=== PATIENT | male | born 1980 | race Caucasian/White ===

== ENCOUNTER 2020-11-29 09:27 | Emergency (ER) | payer OTHER, SELFPAY ==
--- NOTE | ~2020-11-29 | XR_ITS ---
EXAMINATION: XR chest 2V 11/29/2020 10:09 INDICATION: Chest pain. PROCEDURE: 2 view chest COMPARISON: 04/10/2010 FINDINGS: There is left basilar atelectasis/scarring. No focal pneumonia, edema, pleural effusion or pneumothorax. The cardiomediastinal silhouette is within normal limits. There are no pleural effusio ns. There is no pneumothorax suspected. IMPRESSION: 1: Left basilar atelectasis/scarring. Reviewed, dictated and finalized at location B. NURSE
--- NOTE | 2020-11-29 09:33 | ECG_ITS ---
Measurements Intervals [place] Rate: 87 P: 24 [place]: 137 QRS: -13 QRSD: 102 T: 25 QT: 328 QTc: 395 Interpretive Statements SINUS RHYTHM BASELINE ARTIFACT- II, III, AVR, AVL, AVF, V2 NORMAL ECG Electronically Signed On 11-29-2020 10:09:31 BOTTLE BOOTH ATTENDANT by Maximiliano Garcias D.O.
[2020-11-29 09:52] LABS: Basophils Percent Auto 0.4 % (0.2-1.2); Eosinophils Absolute Auto 0.2 K/mm3 (0-0.3); Eosinophils Percent Auto 2.2 % (0-4.4); Hemoglobin 17.2 g/dL (14.0-18.0); Immature Granulocyte Absolute 0.03 K/mm3 (0.00-0.031); Immature Granulocyte Percent A 0.4 % (0-0.5); Lymphocytes Absolute Auto 1.95 K/mm3 (0.9-3.2); Lymphocytes Percent Auto 28.3 % (18.3-44.2); Mean Corpuscular HGB Conc 35.1 g/dl (32-36); Mean Corpuscular Volume 82.5 fl (80-100); Mean Platelet Volume 9.8 fl (7.4-10.4); Monocytes Absolute Auto 0.5 K/mm3 (0.1-0.6); Monocytes Percent Auto 6.5 % (2.6-8.5); Neutrophils Absolute Auto 4.3 K/mm3 (1.3-6.7); Neutrophils Percent Auto 62.2 % (45.5-73.1); Platelet Count Result 264 k/mm3 (150-375); Red Blood Count 5.94 M/mm3 (4.6-6.20); Red Cell Distribution Width 12.2 % (11.5-14.5); White Blood Count 6.9 K/mm3 (4.5-10.0)
[2020-11-29 09:55] VITALS: BP 150/93; PULSE 80; RESP 18; TEMP 36.4; O2SAT 100
--- NOTE | 2020-11-29 09:59 | ED.CHESTPAIN ---
HPI - Chest Pain General Chief Complaint: Chest Pain Stated Complaint: Right sided chest pain x 1 week Time Seen by Provider: 11/29/20 09:29 Source: patient Mode of arrival: ambulatory Limitations: no limitations History of Present Illness HPI narrative: Patient is a 40-year-old male who presents with right-sided chest pain near the axilla patient notes the pain has been present for 1 week worse with deep breathing and certain movements. Patient does not take anything for his. Patient has not been seen for these symptoms. Patient denies URI complaints. Patient notes he has had some wheezing during this.. Patient on arrival is in no distress patient does not appear uncomfortable Related Data Home Medications Medication Instructions Recorded Confirmed clonazepam 11/29/20 dexlansoprazole [Dexilant] mg 11/29/20 Allergies Allergy/AdvReac Type Severity Reaction Status Date / Time No Known Allergies Allergy Mild Unverified 05/23/12 13:00 Review of Systems Review of Systems: All systems reviewed & are unremarkable except as noted in HPI and below PMFSH Past Medical History Medical History (Updated 11/29/20 @ 13:[address] PA-C) GERD (gastroesophageal reflux disease) Social History Social History (Updated 11/29/20 @ 10:[address] PA-C) Smoking status: Never smoker Exam Narrative: Exam Narrative: GENERAL: Well-appearing, well-nourished, and in no acute distress. HEAD: Normocephalic, atraumatic. EYES: PERRLA and EOMI. ENT: Nares clear, no rhinorrhea or epistaxis. Mucous membranes moist. CHEST: Clear to auscultation. No respiratory distress. No wheezes rales or rhonchi HEART: Regular rate and rhythm. No murmur heard. Normal peripheral pulses. ABDOMEN: Soft, nontender, nondistended EXTREMITIES: Normal range of motion. No edema. SKIN: Warm, dry, no rash. NEURO: No focal deficits. Alert and oriented x3. PSYCH: Normal mood and affect. Course Course Emergency Course: Patient evaluated for chest pain in the room no distress felt appropriate for outpatient reevaluation reproducible chest pain will be discharged with outpatient reevaluation given reasons to return Vital Signs Vital signs: Vital Signs Temperature 97.6 F 11/29/20 09:55 Pulse Rate 80 11/29/20 09:55 Respiratory Rate 18 11/29/20 09:55 Blood Pressure 150/93 H 11/29/20 09:55 Pulse Oximetry 100 11/29/20 09:55 Temperature 97.6 F 11/29/20 09:55 Pulse Rate 76 11/29/20 13:21 Respiratory Rate 12 11/29/20 13:21 Blood Pressure 136/97 H 11/29/20 13:21 Pulse Oximetry 97 11/29/20 13:21 MDM - Chest Pain MDM Narrative Medical decision making narrative: ITS Impressions Chest X-Ray 11/29/20 10:10 IMPRESSION: 1: Left basilar atelectasis/scarring. Patients EKGs and labs are without significant high risk changes. Cardiac risk factors were reviewed. Patient is felt likely to be low risk for ACS and reasonable for further risk stratification testing as an outpatient. Pain was not sudden or maximal in onset without tearing or ripping. quality. No other signs or symptoms to suggest aortic dissection. A low-risk Wells criteria is noted. PE is felt to be unlikely. No pneumonia or URI symptoms were seen on evaluation today. Patient is felt to b reasonable for continued evaluation as an outpatient. Lab Data Result diagrams: 11/29/20 09:42 11/29/20 09:41 Labs: Lab Results 11/29/20 11/29/20 11/29/20 Range/Units 09:41 09:42 09:42 WBC 6.9 (4.5-10.0) K/mm3 RBC 5.94 (4.6-6.20) M/mm3 Hgb 17.2 (14.0-18.0) g/dL Hct 49.0 (42.0-52.0) % MCV 82.5 (80-100) fl MCH 29.0 (26-34) pg MCHC 35.1 (32-36) g/dl RDW 12.2 (11.5-14.5) % Plt Count 264 (150-375) k/mm3 MPV 9.8 (7.4-10.4) fl Immature Gran % (Auto) 0.4 (0-0.5) % Neut % (Auto) 62.2 (45.5-73.1) % Lymph % (Auto) 28.3 (18.3-44.2) % [place] % (Auto) 6
[2020-11-29 10:01] LABS: INR 0.8; Prothrombin Time 12.1 Seconds (11.1-14.7)
[2020-11-29 10:02] LABS: Partial Thromboplastin Time 27.2 SECONDS (22.3-36.8)
[2020-11-29 10:12] LABS: Anion Gap 3 mmol/L (8-16); Blood Urea Nitrogen 19 mg/dL (9-20); Calcium 9.2 mg/dL (8.4-10.2); Carbon Dioxide 31 mmol/L (22-30); Chloride 104 mmol/L (98-107); Estimated CRCL calculation 102 ml/min; Estimated Glomerular Filt Rate > 60; Glucose 125 mg/dL (75-110); Potassium 4.4 mmol/L (3.4-5.0); Sodium 138 mmol/L (137-145)
[2020-11-29 10:24] LABS: Troponin I < 0.012 ng/mL (0.000-0.034)
[2020-11-29] MEDS: ASPIRIN 81 MG CHEWABLE TABLET 324 MG PO (10:29)
[2020-11-29 10:47] LABS: D Dimer 0.27 ug/mL (<0.48)
[2020-11-29 11:00] VITALS: BP 126/75; PULSE 76; RESP 18; O2SAT 98
[2020-11-29] MEDS: KETOROLAC 30 MG/ML VIAL (*BKC) IV PUSH (13:12)
[2020-11-29 13:13] LABS: Troponin I < 0.012 ng/mL (0.000-0.034)
[2020-11-29] MEDS: methylPREDNISolone SOD SUCC 125 MG VIAL 80 MG IV PUSH (13:13)
[2020-11-29 13:21] VITALS: BP 136/97; PULSE 76; RESP 12; O2SAT 97
== END 2020-11-29 13:41 | disposition home or self-care (01) ==
PROVIDERS: Emergency Medicine Emergency Medical Services; Emergency Provider Emergency Medicine; PCP Family Medicine
DX: R07.9 Chest pain, unspecified (principal); K21.9 Gastro-esophageal reflux disease without esophagitis
CPT/HCPCS: 36415; 71046; 80048; 84484; 85025; 85380; 85610; 85730; 93005; 96374; 96375; 99284; A9270; J1885; J2930

== ENCOUNTER 2021-10-15 15:12 | Emergency (ER) | payer OTHER, SELFPAY ==
--- NOTE | ~2021-10-15 | XR_ITS ---
EXAMINATION: XR chest 2V DATE: 10/15/2021 15:30 INDICATION: Chest pain TECHNIQUE: PA and lateral views of the chest were obtained. COMPARISON: Chest radiograph dated 11/29/2020 FINDINGS: The lungs are clear with no focal airspace opacities, pulmonary edema, pleural effusion or pneumothor ax. The cardiomediastinal silhouette is normal. Mild thoracic kyphosis with chronic minimal to mild a nterior wedging of a few lower thoracic vertebral bodies. Moderate thoracic spondylosis. IMPRESSION: 1. No acute cardiopulmonary disease. Reviewed, dictated and finalized at location A. CAR DRIVER
--- NOTE | 2021-10-15 15:20 | ECG_ITS ---
Measurements Intervals [place] Rate: 78 P: 29 [place]: 139 QRS: -4 QRSD: 98 T: 43 QT: 364 QTc: 416 Interpretive Statements SINUS RHYTHM WITH SINUS ARRHYTHMIA BASELINE ARTIFACT- I, AVL, AVF, V2 NORMAL ECG Electronically Signed On 10-15-2021 16:00:36 OFFICE AUTOMATION TECHNICIAN by Maximiliano Garcias D.O.
[2021-10-15 15:26] VITALS: BP 148/84; PULSE 79; RESP 16; TEMP 36.7; O2SAT 97
[2021-10-15 15:36] LABS: Basophils Percent Auto 0.4 % (0.2-1.2); Eosinophils Absolute Auto 0.1 K/mm3 (0-0.3); Eosinophils Percent Auto 1.2 % (0-4.4); Hematocrit 48.1 % (42.0-52.0); Hemoglobin 16.9 g/dL (14.0-18.0); Immature Granulocyte Absolute 0.02 K/mm3 (0.00-0.031); Immature Granulocyte Percent A 0.3 % (0-0.5); Lymphocytes Percent Auto 26.4 % (18.3-44.2); Mean Corpuscular HGB Conc 35.1 g/dl (32-36); Mean Corpuscular Hemoglobin 28.8 pg (26-34); Mean Corpuscular Volume 81.9 fl (80-100); Mean Platelet Volume 9.9 fl (7.4-10.4); Monocytes Absolute Auto 0.5 K/mm3 (0.1-0.6); Monocytes Percent Auto 6.2 % (2.6-8.5); Neutrophils Absolute Auto 4.7 K/mm3 (1.3-6.7); Neutrophils Percent Auto 65.5 % (45.5-73.1); Platelet Count Result 263 k/mm3 (150-375); Red Blood Count 5.87 M/mm3 (4.6-6.20); Red Cell Distribution Width 11.9 % (11.5-14.5); White Blood Count 7.2 K/mm3 (4.5-10.0)
[2021-10-15 15:47] LABS: Prothrombin Time 13.1 Seconds (11.1-14.7)
[2021-10-15 15:48] LABS: Partial Thromboplastin Time 28.2 SECONDS (22.3-36.8)
[2021-10-15 16:03] LABS: Troponin I 0.016 ng/mL (0.000-0.034)
[2021-10-15 18:27] LABS: Alanine Aminotransferase 54 U/L (4-50); Albumin Level 4.5 g/dL (3.5-5.1); Alkaline Phosphatase 59 U/L (38-126); Anion Gap 12 mmol/L (8-16); Aspartate Amino Transferase 41 U/L (17-59); Bilirubin,Total 0.8 mg/dL (0.2-1.3); Blood Urea Nitrogen 15 mg/dL (9-20); Calcium 9.1 mg/dL (8.4-10.2); Carbon Dioxide 21 mmol/L (22-30); Chloride 106 mmol/L (98-107); Estimated CRCL calculation 90 ml/min; Estimated Glomerular Filt Rate > 60; Glucose 110 mg/dL (65-110); Lipase 99 U/L (23-300); Potassium 3.9 mmol/L (3.4-5.0); Sodium 139 mmol/L (137-145)
== END 2021-10-16 03:12 | disposition left against medical advice (07) ==
LOC: ANHED 17:29
PROVIDERS: Emergency Provider Emergency Medicine; PCP Family Medicine
DX: R07.9 Chest pain, unspecified (principal); Z53.21 Procedure and treatment not carried out due to patient leaving prior to being seen by health care provider
CPT/HCPCS: 36415; 71046; 80053; 83690; 84484; 85025; 85610; 85730; 93005; 99199

== ENCOUNTER 2022-04-17 08:37 | Emergency (ER) | payer OTHER, SELFPAY ==
--- NOTE | ~2022-04-17 | CT_ITS ---
EXAMINATION: CT brain wo con DATE: 04/17/2022 09:28 INDICATION: Headache, dizziness. TECHNIQUE: Computed tomography (CT) of the head was performed without intravenous contrast. The mA wa s adjusted according to patient size. Iterative reconstruction technique was employed. Exam dose: 60 5.33 mGy-cm total exam DLP. COMPARISON: None FINDINGS: No intracranial mass lesion or hemorrhage or cerebrovascular accident. No midline shift or mass effect effect. Normal ventricular size. Normal zavaleta-white matter differentiation. No subdural or epidural hematoma. Orbital contents are unremarkable. There is an opacified left ethmoid air cell. The paranasal sinuses and mastoid air cells are otherwis e unremarkable. No fracture or bone destruction of the cranial vault. IMPRESSION: No intracranial abnormality Reviewed, dictated and finalized at Location A. Reviewed, dictated and finalized at location B. IMPRESSION: No intracranial abnormality
[2022-04-17 08:42] VITALS: BP 149/92; PULSE 89; RESP 16; TEMP 36.5; O2SAT 98
--- NOTE | 2022-04-17 09:03 | ECG_ITS ---
Measurements Intervals [place] Rate: 89 P: 8 IL: 136 QRS: -17 QRSD: 98 T: 17 QT: 348 QTc: 426 Interpretive Statements SINUS RHYTHM MINIMAL VOLTAGE CRITERIA FOR LVH, CONSIDER NORMAL VARIANT [MEETS CRITERIA IN ONE OF: R(aVL), S(V1), R(V5), R(V5/V6)+S(V1)] CANNOT RULE OUT INFERIOR MYOCARDIAL INFARCTION COMPARED TO ECG 10/15/2021 15:18:30 Q-WAVE IN LEAD 3 IS NEW Electronically Signed On 04-17-2022 18:00:46 CDT by Carmen Edmonds M.D.
--- NOTE | 2022-04-17 09:04 | ED.DIZZY ---
HPI - Dizziness General Chief Complaint: Dizziness Stated Complaint: off the wall dizzy spells Time Seen by Provider: 04/17/22 08:50 History of Present Illness HPI Narrative: 5-year-old male presents the emergency room with a sudden onset of dizziness. Patient denies any injury or trauma. Patient states the dizziness is worse with positional movements and is accompanied with nausea. Patient states he recently was given prescription for azithromycin for postauricular ear pain, believing that he was having an ear infection. Patient denies any sinus congestion, postnasal drip, rhinorrhea, sneezing, or cough. Related Data Home Medications Medication Instructions Recorded Confirmed clonazepam 1 mg tablet 11/29/20 dexlansoprazole 60 mg mg 11/29/20 capsule,biphase delayed release (Dexilant) Allergies Allergy/AdvReac Type Severity Reaction Status Date / Time No Known Allergies Allergy Mild Verified 04/17/22 08:38 Review of Systems Review of Systems: CONSTITUTIONAL: Denies fever, chills, or sweats. EYES: Denies visual changes, redness, or discharge. ENT: Denies rhinorrhea, congestion, sore throat, or otalgia. CARDIOVASCULAR: Denies chest pain, palpitations, or edema. RESPIRATORY: Denies cough or dyspnea. GASTROINTESTINAL: Denies abdominal pain, nausea, vomiting, or diarrhea. GENITOURINARY: Denies dysuria or hematuria. SKIN: Denies rash or itching. MUSCULOSKELETAL: Denies back pain, joint pain, or myalgia. NEUROLOGIC: Reports dizziness PSYCHIATRIC: Denies anxiety or depression. [facility] Past Medical History Medical History GERD (gastroesophageal reflux disease) Social History Social History Smoking status: Never smoker Exam Narrative: GENERAL: Well-appearing, well-nourished, no physical limitations, and in no acute distress. HEAD: Normocephalic, atraumatic. EYES: Conjunctivae normal, PERRLA and EOMI. ENT: External ears normal, TMs with clear effusion bilaterally, right ear canal is erythematous CHEST: Clear to auscultation. No respiratory distress. No wheezes rales or rhonchi. No tenderness. HEART: Regular rate and rhythm. No murmur heard. Normal peripheral pulses EXTREMITIES: Normal range of motion. No edema. No clubbing or cyanosis SKIN: Warm, dry, no rash. No noted wounds NEURO: No focal deficits. Alert and oriented x3. MAEW. CN's II-XI intact bilaterally, normal gait PSYCH: Cooperative. Normal mood and affect. Course Vital Signs Vital signs: Vital Signs Temperature 36.5 C 04/17/22 08:42 Pulse Rate 89 04/17/22 08:42 Respiratory Rate 16 04/17/22 08:42 Blood Pressure 149/92 H 04/17/22 08:42 Pulse Oximetry 98 04/17/22 08:42 Oxygen Delivery Room Air 04/17/22 08:42 Temperature 36.5 C 04/17/22 08:42 Pulse Rate 89 04/17/22 08:42 Respiratory Rate 16 04/17/22 08:42 Blood Pressure 149/92 H 04/17/22 08:42 Pulse Oximetry 98 04/17/22 08:42 Oxygen Delivery Room Air 04/17/22 08:42 MDM - Dizziness MDM Narrative Medical decision making narrative: Patient presents with dizziness, most consistent with a peripheral cause likely of positional vertigo. History is not consistent with M?ni?re's disease, there is no history of trauma. No red flag features for central vertigo which including gradual onset nystagmus or any other focal neurological findings on exam. Presentations not consistent with an acute MACHINE ADJUSTER LEADER infection or tumor basilar artery insufficiency. Patient will be sent home on meclizine and Zofran and told to follow-up with primary care Imaging Data Radiologist's impression: Impressions Head CT 04/17/22 09:34 IMPRESSION: No intracranial abnormality Discharge Plan Discharge Clinical Impression: Benign paroxysmal positional vertigo Patient Disposition: Home, Self-Care Condition: Stable Instructions: Antibiotic Fo
[2022-04-17] MEDS: ONDANSETRON INJ 4 MG/2 ML VIAL IV PUSH (09:12)
[2022-04-17] MEDS: MECLIZINE HCL 25 MG TABLET PO (09:12)
[2022-04-17 09:32] LABS: Basophils Percent Auto 0.5 % (0.2-1.2); Eosinophils Absolute Auto 0.1 K/mm3 (0-0.3); Eosinophils Percent Auto 1.3 % (0-4.4); Hematocrit 45.9 % (42.0-52.0); Hemoglobin 16.3 g/dL (14.0-18.0); Immature Granulocyte Absolute 0.02 K/mm3 (0.00-0.031); Immature Granulocyte Percent A 0.3 % (0-0.5); Lymphocytes Absolute Auto 1.61 K/mm3 (0.9-3.2); Mean Corpuscular HGB Conc 35.5 g/dl (32-36); Mean Corpuscular Hemoglobin 28.5 pg (26-34); Mean Corpuscular Volume 80.2 fl (80-100); Mean Platelet Volume 10.1 fl (7.4-10.4); Monocytes Absolute Auto 0.5 K/mm3 (0.1-0.6); Monocytes Percent Auto 8.2 % (2.6-8.5); Neutrophils Absolute Auto 3.7 K/mm3 (1.3-6.7); Neutrophils Percent Auto 62.7 % (45.5-73.1); Platelet Count Result 248 k/mm3 (150-375); Red Blood Count 5.72 M/mm3 (4.6-6.20); Red Cell Distribution Width 11.9 % (11.5-14.5)
[2022-04-17 09:43] LABS: Alanine Aminotransferase 75 U/L (6-50); Albumin Level 4.4 g/dL (3.5-5.1); Alkaline Phosphatase 65 U/L (38-126); Anion Gap 5 mmol/L (8-16); Aspartate Amino Transferase 46 U/L (17-59); Bilirubin,Total 0.8 mg/dL (0.2-1.3); Blood Urea Nitrogen 15 mg/dL (9-20); Calcium 8.6 mg/dL (8.4-10.2); Carbon Dioxide 25 mmol/L (22-30); Chloride 107 mmol/L (98-107); Estimated CRCL calculation 91 ml/min; Estimated Glomerular Filt Rate > 60; Glucose 107 mg/dL (65-110); Sodium 137 mmol/L (137-145)
[2022-04-17 09:50] VITALS: BP 138/72; PULSE 81; RESP 14; O2SAT 100
[2022-04-17 10:00] LABS: Troponin I < 0.012 ng/mL (0.000-0.034)
[2022-04-17 11:02] VITALS: BP 132/76; PULSE 72; RESP 14; O2SAT 100
== END 2022-04-17 11:02 | disposition home or self-care (01) ==
PROVIDERS: Emergency Provider Nurse Practitioner Family; PCP Family Medicine
DX: H81.10 Benign paroxysmal vertigo, unspecified ear (principal); K21.9 Gastro-esophageal reflux disease without esophagitis; R94.31 Abnormal electrocardiogram [ECG] [EKG]
CPT/HCPCS: 36415; 70450; 80053; 84484; 85025; 93005; 96374; 99284; A9270; J2405

== ENCOUNTER 2022-08-05 09:12 | Outpatient (CLI) | payer OTHER, SELFPAY ==
--- NOTE | 2022-08-05 11:30 | NEURO_ITS ---
Impression: # Complains of nocturnal paresthesia and pain shooting up the arm. # Bilateral moderate Carpal Tunnel Syndrome. # No ulnar neuropathy. # Normal needle/EMG exam. Nerve Conduction Studies Anti Sensory Summary Table Stim Site NR Peak (ms) P-T Amp (?V) Site1 Site2 Delta-P (ms) Dist (cm) Arturo (m/s) Left Median Anti Sensory (2-3nd Digit) Wrist 4.4 38.1 Wrist 2-3nd Digit 4.4 14.0 32 Wrist 4.6 13.3 Wrist 2-3nd Digit 4.4 14.0 32 Right Median Anti Sensory (2-3nd Digit) Wrist 4.4 21.6 Wrist 2-3nd Digit 4.4 14.0 32 Wrist 4.8 30.5 Wrist 2-3nd Digit 4.4 14.0 32 Left Radial Anti Sensory (Base 1st Digit) Wrist 2.1 37.9 Wrist Base 1st Digit 2.1 0.0 Right Radial Anti Sensory (Base 1st Digit) Wrist 2.2 22.4 Wrist Base 1st Digit 2.2 0.0 Left Ulnar Anti Sensory (5th Digit) Wrist 2.6 69.6 Wrist 5th Digit 2.6 14.0 54 Right Ulnar Anti Sensory (5th Digit) Wrist 2.4 51.6 Wrist 5th Digit 2.4 14.0 58 Motor Summary Table Stim Site NR Onset (ms) O-P Amp (mV) Site1 Site2 Delta-0 (ms) Dist (cm) Arturo (m/s) Left Median Motor (Abd Poll Brev) Wrist 5.0 3.0 Elbow Wrist 4.9 29.0 59 Elbow 9.9 3.0 Right Median Motor (Abd Poll Brev) Wrist 4.8 1.1 Elbow Wrist 5.0 29.0 58 Elbow 9.8 1.0 Left Ulnar Motor (Abd Dig Minimi) Wrist 2.4 8.4 A Elbow Wrist 5.6 33.0 59 A Elbow 8.0 7.7 Right Ulnar Motor (Abd Dig Minimi) Wrist 2.6 8.9 A Elbow Wrist 5.4 31.0 57 A Elbow 8.0 8.4 F Wave Studies NR F-Lat (ms) L-R F-Lat (ms) Left Median (Mrkrs) (Abd Poll Brev) 29.77 0.88 Right Median (Mrkrs) (Abd Poll Brev) 28.89 0.88 Left Ulnar (Mrkrs) (Abd Dig Min) 28.90 0.31 Right Ulnar (Mrkrs) (Abd Dig Min) 28.59 0.31 EMG Side Muscle Nerve Root Ins Act Fibs Amp Dur Recrt Comment Right 1stDorInt Ulnar C8-T1 Nml Nml Nml Nml Nml Right Ext Indicis Radial (Post Int) C7-8 Nml Nml Nml Nml Nml Right Ext Digitorum Radial (Post Int) C7-8 Nml Nml Nml Nml Nml Right BrachioRad Radial C5-6 Nml Nml Nml Nml Nml Right PronatorTeres Median C6-7 Nml Nml Nml Nml Nml Right Abd Poll Brev Median C8-T1 Nml Nml Nml Nml Nml Left 1stDorInt Ulnar C8-T1 Nml Nml Nml Nml Nml Left Ext Indicis Radial (Post Int) C7-8 Nml Nml Nml Nml Nml Left Ext Digitorum Radial (Post Int) C7-8 Nml Nml Nml Nml Nml Left BrachioRad Radial C5-6 Nml Nml Nml Nml Nml Left PronatorTeres Median C6-7 Nml Nml Nml Nml Nml Left Abd Poll Brev Median C8-T1 Nml Nml Nml Nml Nml Right ABD Dig Min Ulnar C8-T1 Nml Nml Nml Nml Nml Right Biceps Musculocut C5-6 Nml Nml Nml Nml Nml Right Triceps Radial C6-7-8 Nml Nml Nml Nml Nml Right Deltoid Axillary C5-6 Nml Nml Nml Nml Nml Left ABD Dig Min Ulnar C8-T1 Nml Nml Nml Nml Nml Left Biceps Musculocut C5-6 Nml Nml Nml Nml Nml Left Triceps Radial C6-7-8 Nml Nml Nml Nml Nml Left Deltoid Axillary C5-6 Nml Nml Nml Nml Nml MTDD
== END 2022-08-05 09:13 | disposition home or self-care (01) ==
LOC: ANHCARD 09:16
PROVIDERS: PCP Family Medicine; Visit Provider Family Medicine
DX: R20.2 Paresthesia of skin (principal); G56.03 Carpal tunnel syndrome, bilateral upper limbs
CPT/HCPCS: 95886; 95911

== ENCOUNTER 2022-08-26 16:30 | Outpatient (CLI) | payer OTHER, SELFPAY ==
--- NOTE | ~2022-08-26 | MR_ITS ---
EXAMINATION: MR cervical spine wo con DATE: 08/26/2022 17:30 INDICATION: Neck pain. TECHNIQUE: Magnetic resonance imaging (MRI) of the cervical spine was performed without intravenous c ontrast. Sequences included sagittal T2-weighted FSE, sagittal T2-weighted FS FSE, sagittal T1-weight ed FSE, axial MERGE, and axial T2-weighted FSE. COMPARISON: None FINDINGS: Bone alignment is normal. Vertebral body heights and intervertebral disc heights are normal . The spinal cord signal intensity is normal. The following disc levels are specifically discussed: C2-C3: The disc does not extend beyond the endplate margin. There is no uncovertebral joint osteoarth ritis. There is mild bilateral facet joint osteoarthritis. There is no neural foraminal stenosis. The re is no central canal stenosis. C3-C4: There is a central protrusion. There is mild right and moderate left uncovertebral joint osteo arthritis. There is mild left facet joint osteoarthritis. There is mild left neural foraminal stenosi s. There is mild central canal stenosis. C4-C5: The disc is bulging. There is mild bilateral uncovertebral joint osteoarthritis. There is no f acet joint osteoarthritis. There is mild left neural foraminal stenosis. There is mild central canal stenosis. C5-C6: The disc does not extend beyond the endplate margin. There is mild bilateral uncovertebral laura nt osteoarthritis. There is moderate bilateral facet joint osteoarthritis. There is mild left neural foraminal stenosis. There is no central canal stenosis. C6-C7: The disc does not extend beyond the endplate margin. There is mild bilateral uncovertebral laura nt osteoarthritis. There is mild bilateral facet joint osteoarthritis. There is no neural foraminal s tenosis. There is no central canal stenosis. C7-T1: The disc does not extend beyond the endplate margin. There is no uncovertebral joint osteoarth ritis. There is mild bilateral facet joint osteoarthritis. There is no neural foraminal stenosis. The re is no central canal stenosis. IMPRESSION: 1. Mild cervical spondylosis. Reviewed, dictated and finalized at location A. ENTARY TUTOR
== END 2022-08-26 16:31 | disposition home or self-care (01) ==
PROVIDERS: PCP Family Medicine; Visit Provider Physician Assistant
DX: M54.2 Cervicalgia (principal); M43.02 Spondylolysis, cervical region
CPT/HCPCS: 72141

== ENCOUNTER 2024-11-02 15:58 | Outpatient (CLI) | payer OTHER, SELFPAY ==
--- NOTE | ~2024-11-02 | CT_ITS ---
EXAMINATION: CT abdomen w con DATE: 11/02/2024 16:20 INDICATION: Anemia TECHNIQUE: Computed tomography (CT) of the abdomen was performed with 100 mL Omnipaque-350 intravenou s contrast. Automated exposure control and iterative reconstruction technique were employed. The dose -length product was 638.93 mGy-cm. COMPARISON: CT dated 05/02/2019 FINDINGS: No interval change in likely benign 3 mm pleural-based left lower lobe nodule. Heart size is normal. No pericardial or pleural effusion. Increase in size of a now moderate sized sliding-type hiatal orlin ia. Liver, gallbladder, spleen, pancreas, bilateral adrenal glands and kidneys are normal. Visualized portions of bowels are unremarkable. No pathologically enlarged abdominal lymphadenopathy. Mild lowe r thoracic kyphosis with severe spondylosis and chronic mild anterior wedging of multiple lower thora cic vertebral bodies. IMPRESSION: 1. Interval increase in size of a now moderate-sized sliding-type hiatal hernia. Reviewed, dictated and finalized at location B. ICK BOAT LEVER OPERATOR IMPRESSION: 1. Interval increase in size of a now moderate-sized sliding-type hiatal hernia .
== END 2024-11-02 15:59 | disposition home or self-care (01) ==
PROVIDERS: PCP Family Medicine; Visit Provider Nurse Practitioner Family
DX: K44.9 Diaphragmatic hernia without obstruction or gangrene (principal)
CPT/HCPCS: 74160; Q9967

== ENCOUNTER 2025-01-10 00:14 | Day surgery (SDC) | payer OTHER, SELFPAY ==
[2024-12-30 12:39] VITALS: BMI 32.0
--- OUTSIDE RECORDS SUMMARY | 2025-01-10 00:18 | XMS_ITS | Clinical Summary ---
Author Organization [facility] Address [address] [place] [address] Care Team Providers Care Rn Clinical Documentation Specialist Name Role Phone Unavailable Primary Care Provider Unavailabl e Immunizations Immunization Administration Dates Next Due Covid-19, Mrna, Lnp-s, Pf, 30 Mcg/0.3 Ml Dose (P fizer) 11/07/2021 Social History Tobacco Use Types Packs/Day Years Used Date Smoking Tobacco: Never Assessed Sex and Gender Information Value Date Recorded Sex Assigned at Not on file Legal Sex Male 8:25 AM CDT Gender Identity Not on file Sexual Orientation Not on file Plan of Treatment Health Maintenance Due Date Last Done Comments Hepatitis C Virus (HCV) Screening 1980 TdaP Immunization 1980 Hepatitis B Immunization (1 of 3 - 19+ 3-dose series) 2000 Influenza Immunization (#1) 06/19/202402/2020, 08/28/2019, 07/05/2018 SARS-COV-2 Immunization ( season) 2024 11/07/2021, 01/05/2021, 12/15/2020 Respiratory Syncytial Virus (RSV) Immunization (Adult) (1 - 1-dose 75+ series) 2056 Meningococcal Immunization (ACWY) Aged Out No longer eligible b ased on patient's age to complete this topic Pneumococcal Immunization Combined Aged Out No longer eligible b ased on patient's age to complete this topic Rotavirus Immunization Aged Out No lo nger eligible based on patient's age to complete this topic
--- OUTSIDE RECORDS SUMMARY | 2025-01-10 00:18 | XMS_ITS ---
Author Organization [facility] [employer] Address [address] [address] Care Team Providers Care Case Making Machine Operator Name Role Phone Salvador Kristina Unavailable [phone] Social History Sex Assigned At : Social History Observation Description Sex Assigned At Male Encounters Encounter Location Date Provider Diagnosis [facility] [employer] [address] [address] 08/01/2024 Kristina Franco Plan Of Treatment No Information Progress Notes * VANESA PENA DDOB:1980 (44 yo M)Acc No.[id number]:08/01/2024 Patient: Monica JONESVANESA Provider: JACK CHARLTON :1980 A ge:44 Y S ex:Male Date:08/01/2024 Address:[address] [place] [address] [facility] Subjective: * Chief Complaints: * * Medical History: Objective: * Vitals: Assessment: Plan: * Treatment: * Procedure Codes: N S NO SHOW * Billing Information: * Visit Code: * Procedure Codes: NS NO SHOW. * Sign off status: Completed true * Provider: JACK CHARLTON Date: Generated for Printi ng/Faweslyg/eTransmitting on: 0 01/10/2025 12:18 AM CDT
--- OUTSIDE RECORDS SUMMARY | 2025-01-10 00:18 | XMS_ITS ---
Author Organization [facility] [employer] Address [facility] [address] [address] Care Team Providers Care Mill Roll Operator Name Role Phone Migration, Provider Unavailable Unavailable Allergies Allergen (clinical drug ingredient) Drug/Non Drug Allergy documented on EMR Reaction Allergy Type Onset Date Status amoxicillin Amoxicillin Unknown Drug Allergy 06/12/2023 Ac tive REASON FOR VISIT EMR-Keagan Medications Medication SIG (Take, Route, Frequency, Duration) Notes Start Date End Date Status Clotrimazole-Betametha sone 1-0.05 % External 10/14/2023 Active Sertraline HCl 25 MG Oral 10/14/2023 Active Sertraline HCl 50 MG Oral 10/14/2023 Active valACYclovir HCl 1 GM Oral 10/14/2023 Active Omeprazole *Pick strength-form from [employer] for eRX* 10/14/2023 Active clonazePAM 1 MG Oral 10/14/2023 Act rosalina Social History Sex Assigned At : Social History Observation Description Sex Assigned At Male Encounters Encounter Location Date Provider Diagnosis [facility] [address] [address] 03/06/2024 Provider Migration Plan Of Treatment No Information Progress Notes * VANESA PENA DDOB:1980 (43 yo M)Acc No.[id number]:03/06/2024 Patient: Monica VANESA JONES :1980 A ge:43 Y S ex:Male Address:[address] [place], [place] [address], [address] Subjective: * Chief Complaints: * E MR-Keagan * Medical History: * Surgical History: * Hospitalization/Major Diagno stic Procedure: * Family History: F ather: No current problems or disability . M other: No current problems or disability .? * Social History: M igrated Social History: M igrated Social History: Alcohol Intake: None 06/12/2023,Tobacco Years: Former smoker 08/12/2022. * Medications: T akingClotrimazole-Betamethasone 1-0.05 % Cream External clonazePAM 1 MG Tablet Oral Sertraline HCl 25 MG Tablet Oral Omeprazole , Notes to Pharmacist: *Pick strength-form from [facility] for eRX*Sertraline HCl 50 MG Tablet Oral valACYclovir HCl 1 GM Tablet Oral Taking Clotrimazole-Betamethasone 1-0.05 % Cream External Taking clonazePAM 1 MG Tablet Oral Taking Sertraline HCl 25 MG Tablet Oral Taking Omeprazole , Notes to Pharmacist: *[facility]*Taking Sertraline HCl 50 MG Tablet Oral Taking valACYclovir HCl 1 GM Tablet Oral * Allergies: A moxicillin: Allergy - Onset Date 06/12/2023 Objective: * Vitals: * Physical Examination: Assessment: Plan: * Treatment: PDMP report request complete d on 04/21/2024 09:20:52 PM - Kristina Franco * Procedure Codes: * true * Date: Generated for Yariel cast/Arcadio/Le on: 0 01/10/2025 12:18 AM CDT
--- OUTSIDE RECORDS SUMMARY | 2025-01-10 00:18 | XMS_ITS | Continuity of Care Document ---
Author Organization [facility] Address [address] [place] [address] Phone Care Team Providers Care Turkey Farmer Name Role Phone Kareem Espino MD Unavailable Unavailable Procedures Procedure Date MRI, UPPER EXTREMITY W/O CONTRAST Advance Directives Directive Yes / No Effective Date File Name No Information Encounters Encounter Description Practice Location Reason(s) For Visit Diagnoses Date Provider Providers Copied on Encounter [facility], [address], [place], [place], [id number], [place] tel:[phone] [facility] No Information Srinivas Serna. [address], [place], [id number], [place]. tel:[phone] Referring Provider: Josué Chaparro, [address] [place] [address] [place], [address]. tel:[phone] Family History Family Member Type Diagnosis Age At Onset No Information Payers Payer name Insurance type Covered republican ID Authoriza tion(s) [employer] CI [id number] NAPP Social History Type Description Quantity Date Captured Comments Sex Male Smoking Status No Information Chief Complaint And Reason For Visit No Information Reason For Referral Reason For Referral No Information History Of Present Illness Encounter Date Complaint History Of Prese nt Illness No Information Functional Status Date Functional Assessmen t No Information Instructions Date Instruction Additional Infor mation No Information Assessments Type Assessment Date No Information Patient Care Teams Name Effective Dates (start - stop) Status Members No Information
--- OUTSIDE RECORDS SUMMARY | 2025-01-10 00:19 | XMS_ITS | Clinical Summary ---
Author Organization [facility] Address [address] [place] [address] Care Team Providers Care Ultrasound Technician Name Role Phone Samantha Guillen MD Primary Care Provider [phone] Source Comments [facility],non-owned Affiliates and Associated Physician Practices is amultiple site organization consisting of ambulatory clinics and hospital sitesin [place], [place], [place] and [place]. This disclosure is being madepursuant to the Care Everywhere program and may not contain all information available regarding this patient. Last updated 18.[facility] Allergies No known active allergies Medications * Be aware that medications may not be up to date on this document. Alwaysverify current medications with the patient. Medication Sig Dispensed Refills Start Date End Date Status CLONAZEPAM PO Active Dexlansoprazole (DEXILANT PO) Active Active Problems No known active problems Social History Tobacco Use Types Packs/Day Years Used Date Smoking Tobacco: Never Smokeless Tobacco: Never Sex and Gender Information Value Date Recorded Sex Assigned at Not on file Gender Identity Not on file Sexual Orientation Not on file Last Filed Vital Signs Vital Sign Reading Time Taken Comments Blood Pressure 118/72 08/27/2017 12:30 PM RECORDING STUDIO INTERN Pulse 83 08/27/2017 12:30 PM RECORDING STUDIO INTERN Temperature 36.8 C (98.3 F) 08/27/2017 12:30 PM RECORDING STUDIO INTERN Respiratory Rate 16 08/27/2017 12:30 PM RECORDING STUDIO INTERN Oxygen Saturation 98% 08/27/2017 12:30 PM RECORDING STUDIO INTERN Inhaled Oxygen Concentration - - Weight 92.5 kg (204 lb) 08/27/2017 12:30 PM RECORDING STUDIO INTERN Height 172.7 cm (5' 8 ) 08/27/2017 12:30 PM RECORDING STUDIO INTERN Body Mass Index 31.02 08/27/2017 12:30 PM RECORDING STUDIO INTERN Plan of Treatment Health Maintenance Due Date Last Done Comments LIPID TESTING 1981 HIV SCREENING 1996 HEPATITIS C SCREENING 07/11/1999 DTAP/TDAP/TD VACCINES (1 - Tdap) 2000 HEPATITIS B VACCINE (1 of 3 - 19+ 3-dose series) 2000 COVID-19 VACCINE (1 - 2023-2 5 season) 2024 INFLUENZA VACCINE (#1) 2024 DEPRESSION SCREENING 10/19/2024 ZOSTER VACCINE (1 of 2) 2031 HIB VACCINE Aged Out No longer eligi ble based on patient's age to complete this topic HPV VACCINE Aged Out No longer eligi ble based on patient's age to complete this topic MENINGOCOCCAL (Group B) VACC INE SHARED DECISION-MAKING Aged Out No longer eligibl e based on patient's age to complete this topic MENINGOCOCCAL GROUPS A/C/Y/W VACCINE Aged Out No longer eligible b ased on patient's age to complete this topic PNEUMOCOCCAL VACCINE Aged Out No long er eligible based on patient's age to complete this topic Care Teams Ultrasound Technician Relationship Specialty Start Date End Date Samantha Guillen MD [address] [place] [id number] PCP - General Family Medicine 08/27/17
--- OUTSIDE RECORDS SUMMARY | 2025-01-10 00:19 | XMS_ITS | Data Portability ---
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 Patient has clinical and nerve conduction velocity test evidence of bilateral carpal tunnel syndrome. I have discussed the option of carpal tunnel release with him. 2. Patient appears to have radiculopathy right C6 distribution. He has mild weakness in supination which is C6 and he has constant numbness in the dorsum of his right hand 1st webspace which would be in the C6 distribution. One option would be to proceed with carpal tunnel release surgery and see with symptoms are left. With his chronic significant right-sided neck pain and sensory and motor findings strongly suggesting a C6 cervical radiculopathy, I think it would be prudent to obtain MRI scan of the cervical spine 1st. If he had significant cervical stenosis for example it would be appropriate to have him see a cervical medical charge entry specialist as the next step. If he does not have an urgent surgical lesion in the cervical spine then I would recommend proceeding with carpal tunnel release as discussed. I have given him the care the neck instruction booklet that shows exercises he can work on. He does rounding of the shoulders which are somewhat protracted and as result he has a neck forward type of posterior and I explained him that trying to stand up straight so that is neck is in line with his back will tend to open up the foramina may reduce radicular symptoms. I have prescribed a Medrol Dosepak to see if this will help. I would recommend he wear the splints at night for the time being. I will see him back after the test. 45 minutes were spent total care this patient more than half the time spent in [id number] care. [email or web address] Not available 09/15/2023 19:40:44 09/21/2024 09/21/2024 Assessment: Elevated BP Severe OSAHS, AHI = 30 PLMD Hypoventilation Plan: The following were reviewed and explained to the patient: [facility] home sleep study 12/31/20 AHI = 18 [facility] home sleep study 09/13/24 AHI = 30, supine AHI = 33 General information on sleep disordered breathing, evaluation of sleep disordered breathing, treatment with PAP therapy, and living with PAP therapy were covered. PSG is medically necessary to determine the management of sleep apnea. We discussed with the patient the impact of weight on: Sleep disordered breathing Mixed hyperlipidemia SANDY Hepatic steatosis Right inguinal hernia We discussed with the patient the benefit of PAP therapy on: Sleep disordered breathing Anxiety SANDY Educated the patient on sleep hygiene measures. Relaxing rituals to rest easy, understanding foods with positive and negative impact on sleep, creating a peaceful sleep environment, timing of exercise, using herbal sleep aids, and practicing sleep-friendly meditation were covered. To determine how much sleep is needed, the patient will assess where he falls on the spectrum, examine what lifestyle factors such as work schedules and stress are affecting the quality and quantity of sleep. In general, adults need 7-9 hours of sleep. Educated the patient regarding foods that promote sleep. These include but are not limited to cherries, bananas, toast, oatmeal, and warm milk. Educated the patient regarding foods and drinks to avoid before bedtime. These include but are not limited to aged cheese, chocolate, spicy foods, tomato-based sauces, soy, ginseng tea and processed meat. Advocated influenza vaccination annually and pneumonia vaccination CLAIR. Advocated weight loss through diet and exercise. Patient's ideal body weight according to height and gender is up to 160 lbs. Encouraged patient to adjust caloric intake to maintain/achieve ideal body weight, emphasizing on fruits, vegetables, whole grains, and fat-free or low-fat products. These include lean meats, poultry, fish, beans, eggs, and nuts and foods that are low in saturated fats, trans-fats, cholesterol, salt (sodium), and glycemic index. Stressed the importance of regular exercise up to the patient's capacity limits. In this case, we recommend 20 min daily walking, 2 days a week of resistance training. Patient to monitor BP daily and bring records to PCP for further management. Follow-up: 1 week after titration sleep study Not available 09/21/2024 17:29:03 11/15/2024 11/15/2024 Assessment: Elevated BP Severe OSAHS, AHI = 30 Treatment-emergent central apneas Plan: The following were reviewed and explained to the patient: [facility] home sleep study 12/31/20 AHI = 18 [facility] home sleep study 09/13/24 AHI = 30, supine AHI = 33 [facility] titration sleep study 11/04/24 sleep onset = 28.5 minutes, REM onset = 327 minutes, ResMed medium AirFit F30 full face mask @ 12 cmH2O, PLMI = 0.0 Educated the patient on problems and solutions associated with positive airway pressure (PAP) use. Difficulty tolerating pressure, mask leaks, intolerance of interface, nasal congestion, claustrophobic response, dry mouth, and unintentional mask removal during sleep were covered. Patient's mask leaks air. We will ensure the mask is situated properly. Patient can wear protective eye covering during sleep, and the mask can be resized. Dry mouth is a normal occurrence for people who just start out on PAP therapy because they are not used to air blowing in to the throat to hold open. Dry mouth is exacerbated for people who wear nasal PAP mask and whose jaw drops open during sleep. Not only does this create a much less efficient therapy because of leakage, it also causes dry mouth. There are a couple solutions to help prevent this type of problem. A simple solution would be to wear a chinstrap which essentially holds the jaw in place. A second solution would be a switch to a full face mask which covers both the nose and mouth. Although this is another easy solution, using a full face mask for some could seem claustrophobic or confining. There is no silver bullet solution as no single mask is right for everybody. Sometimes it takes a bit of experimentation to find a PAP mask which best meets the patient's needs as well as fits comfortably. Another tactic is to use a humidifier on your PAP machine. Most new PAP machines have integrated humidifiers. Humidification is bradshaw when dealing with symptoms of dry mouth because the humidifier can supply both warm and room temperate air. Even a small amount of humidity in the airflow will help nasal passages to stay hydrated. If a person is using both a full face mask and a PAP machine with a heated humidifier and is still experiencing dry mouth, an ill-fitted PAP mask might be causing the problem. Leakage can be caused by a mask that is to large or small, the wrong style mask, the cushion is degraded or simply because the mask's straps aren't adjusted correctly. If leakage occurs, dry air from the room can leak in while humidification escapes. The result is reduced humidification within the circuit and resulting in dry throat and mouth. Finally, beyond factors involving the PAP machine and mask, dry mouth can also be caused or worsened by dehydration. The general recommendation to during eight 8 oz. glasses of water a day might be too little for many people. When people drink large amounts of coffee or other caffeine beverages, or sweat a lot during the day, making sure to rehydrate is an important part of PAP therapy. ResMed Air Sense 11 auto set unit with heated humidifier, supplies and ResMed medium AirFit F30 full face mask @ 12 cmH2O ordered. Further titration will be based on clinical response. Provided the patient with a list of local home care stores where positive airway pressure (PAP) units, accoutrement, and services are available. Home care store selection is based on patient's insurance carrier. Patient will setup an appointment with [facility] for supplies and pressure adjustments. A major predictor of success with use of PAP is follow-up with both the respiratory supplier and the treating physician. The respiratory supplier optimally will follow-up within two weeks after starting use while the treating physician optimally will follow-up within 90 days after starting therapy to assess adherence and effectiveness of treatment. The download results can show the treating physician information about adherence to treatment, residual AHI while on treatment and presence of large mask leakage. This information is especially helpful if the patient has residual sleepiness despite treatment. General information on sleep disordered breathing, evaluation of sleep disordered breathing, treatment with PAP therapy, and living with PAP therapy were covered. We discussed with the patient the impact of weight on: Sleep disordered breathing Mixed hyperlipidemia SANDY Hepatic steatosis Right inguinal hernia We discussed with the patient the benefit of PAP therapy on: Sleep disordered breathing Anxiety SANDY Educated the patient on sleep hygiene measures. Relaxing rituals to rest easy, understanding foods with positive and negative impact on sleep, creating a peaceful sleep environment, timing of exercise, using herbal sleep aids, and practicing sleep-friendly meditation were covered. To determine how much sleep is needed, the patient will assess where he falls on the spectrum, examine what lifestyle factors such as work schedules and stress are affecting the quality and quantity of sleep. In general, adults need 7-9 hours of sleep. Educated the patient regarding foods that promote sleep. These include but are not limited to cherries, bananas, toast, oatmeal, and warm milk. Educated the patient regarding foods and drinks to avoid before bedtime. These include but are not limited to aged cheese, chocolate, spicy foods, tomato-based sauces, soy, ginseng tea and processed meat. Advocated influenza vaccination annually and pneumonia vaccination CLAIR. Advocated weight loss through diet and exercise. Patient's ideal body weight according to height and gender is up to 160 lbs. Encouraged patient to adjust caloric intake to maintain/achieve ideal body weight, emphasizing on fruits, vegetables, whole grains, and fat-free or low-fat products. These include lean meats, poultry, fish, beans, eggs, and nuts and foods that are low in saturated fats, trans-fats, cholesterol, salt (sodium), and glycemic index. Stressed the importance of regular exercise up to the patient's capacity limits. In this case, we recommend 20 min daily walking, 2 days a week of resistance training. Patient to monitor BP daily and bring records to PCP for further management. Follow-up: 3 months, January 2025 [email or web address] Not available 11/15/2024 17:12:09 Plan of Treatment Reminders Order Date Submit Date Provider Last Modified By Organization Details Last Modified Time Details Appointments None recorded. Lab drug of abuse panel, urine 2023 024 [facility] (Lab), [address] [place], [address], 20:02:25 Referral sleep medicine referral - Please call patient to schedule an appointment . Thank you. 2023 024 [email or web address] Bridger Sigala MD, [address] [place], [address], 4 08:50:00 Procedures None recorded. Surgeries None recorded. Imaging polysomnogr am, titration study - Please call patient to schedule. 2023 024 [facility], [address] [place], [address], 5 09:47:14 home sleep study - Please call pt to schedule 2023 024 [facility] [place], [address] [place], [address], 5 14:06:49 US, abdomen, complete - Please call pt to schedule 2023 [email or web address] [place] [address] ([facility]), [address] [place], [address], 5 09:23:34 XR, hand 2022 023 [email or web address] [facility] [place], [address], [place], [address], 3 15:03:50 Medication Orders omeprazole 20 mg capsule,del ayed release 2023 024 [id number], [address], [place], [place], [id number], 4 08:24:09 sertraline 50 mg tablet 2023 024 [id number], [address], [place], [place], [id number], 4 08:24:09 Medrol (Boni) 4 mg tablets in a dose pack 2022 023 [email or web address] [facility] #[id number], [address], [place], [place], [id number], 4 08:06:06 Patient TargetsNo targets recorded. Patient InstructionsNo instructions recorded. Reason for Referral Sleep Medicine Referral for Obstructive sleep apnea syndrome Please call patient to schedule an appointment. Thank you. Referring Physician: Sonal Armstrong, Family Medicine, Encounter Date: 09/01/2024 Results Created Date Observation Date Name Description Value Unit Range Abnormal Flag Note LastModifiedBy Organization Detail LastModifiedTime 09/14/20 23 XR, hand No observ ation record ed. [email or web address] [facility] [place] [address], [place], [address], 09/15/2023 19:35:26 09/20/20 24 09/13/2024 home sleep study No observ ation record ed. [facility] [address] [place], [address], 09/20/2024 13:16:25 11/02/19 25 11/02/2024 CT, abdom en, w/wo contr ast No observ ation record ed. [email or web address] [facility] [address], [place], [address], 11/03/2024 12:53:07 11/09/19 25 05/04/2025 polys omnog lorna, titra tion study No observ ation record ed. [facility] [address] [place], [address], 11/09/2024 09:47:14 11/10/19 25 11/04/2024 home sleep study No observ ation record ed. [email or web address] [facility] [address] [place], [address], 11/10/2024 17:04:46 Result Notes None recorded. Problems Name Problem SNOMED Code Status Onset Date Resolution Date Notes Provider Name and Address Organization Details Recorded Time Benign paroxysmal positional vertigo 996338842 Active 2021 Not Available [facility] 3 08:45:42 Steatosis of liver 724214018 Active Not Available [facility] 3 08:45:42 Gastroesophag eal reflux disease 796926337 Active Not Available [facility] 3 08:45:42 Anxiety 62012039 Active Not Available [facility] 3 08:45:42 Obstructive sleep apnea syndrome 03301382 Active 2020 Not Available [facility] 3 08:45:42 Hiatal hernia 88557136 Active Not Available [facility] 3 08:45:43 Right inguinal hernia 512524426 Active 2022 JOE Young [address], [place], [address] , [employer] 3 08:25:39 Carpal tunnel syndrome 42914381 Active 2022 SUZANNE Mahoney-Zainab [address], [place], [address] , [employer] 3 08:05:17 Cervical radiculopathy 40844194 Active 2022 Vera Mendosa CMA null, [employer] 3 14:16:41 Notes:Medical History: Anxie ty/Panic disorder/Depression Vertigo Bruxism Obesity with severe OSAHS, AHI = 30, 09/13/24, oln CPAP c/o IVRC Treatment-emergent central apneas Mixed hyperlipidemia Hiatal hernia with SANDY Hepatic steatosis Right inguinal hernia Cervical spondylosis Left acromioclavicular OA Bilateral CTS Left radial/ulnar fractures Procedure History: EGD 2016 Colonoscopy with polypectomy 2016 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 Procedures Surgical History Date Name Laterality Status Provider Name and Address Organization Details Recorded Time EGD completed Tatiana hall MA [employer] 09/21/2024 17:07:02 Imaging Results Imaging Date Name Status [facility]Modified by [facility] Details LastModified Time 09/14/2023 XR, hand completed [email or web address] [facility] [place] [address], [place], [address], 09/15/2023 19:35:26 09/13/2024 home sleep study completed [facility] [address] [place], [address], 09/20/2024 13:16:25 11/02/2024 CT, abdomen, w/wo contrast completed [email or web address] [place] [address], [place], [address], 11/03/2024 12:53:07 05/04/2025 polysomnogram, titration study completed [facility] [address] [place], [address], 11/09/2024 09:47:14 11/04/2024 home sleep study completed [email or web address] [facility] [address] [place], [address], 11/10/2024 17:04:46 Procedure Notes None recorded. Medical Equipment None Reported. Allergies Allergen ID Allergen Name Allergen Category Reaction Reaction Severity Criticality Documentation Date Start Date Code Code System Note Provider Name and Address Organization Details Recorded Time amoxicill in medicatio n rash Not available Not available 12/17/2022 723 RxNorm Not Available [facility] 08:[facility]32 Medications Name Sig Start Date Stop Date Status Note LastModified by Organization Details LastModified Time cyclobenzap rine 10 mg tablet Take 1 tablet 3 times a day by oral route as needed for 30 days. active Not Available Not Available No t Available amoxicillin 500 mg capsule TAKE ONE CAPSULE BY MOUTH THREE TIMES DAILY FOR 14 DAYS 06/23 completed Not Available Not Available Not Available buspirone 5 mg tablet Take 1 tablet as needed by oral route at bedtime. 11/29 completed Not Available Not Available Not Available nystatin 100,000 unit/mL oral suspension Take 10 mL 4 times a day by oral route for 7 days. 06/23 completed Not Available Not Available Not Available venlafaxine ER 75 mg capsule,ext ended release 24 hr Take 1 capsule(s ) every day by oral route. active Not Available Not Available No t Available azithromyci n 250 mg tablet FOLLOW PACKAGE DIRECTION S 08/11 completed Not Available Not Available Not Available ofloxacin 0.3 % eye drops INSTILL 1 DROP INTO LEFT EYE FOUR TIMES DAILY FOR 5 DAYS 08/19 completed Not Available Not Available Not Available benzonatate 200 mg capsule TK 1 C PO Q NIGHT 07/23 completed Not Available Not Available Not Available valacyclovi r 1 gram tablet Take 2 tablets every 12 hours by oral route for 1 day. 09/14 completed Not Available Not Available Not Available prednisone 20 mg tablet 3 po qday x 3 days then 2 po qday x 3 days then 1 po qday x 3 days then 1/2 tab po qday x 3 days then stop active Not Available Not Available No t Available doxycycline hyclate 50 mg capsule TK ONE C PO BID WITH MEALS 03/02 completed Not Available Not Available Not Available clonazepam 1 mg tablet TAKE 1 TABLET BY MOUTH DAILY NEEDED active Not Available Not Available No t Available metronidazo le 500 mg tablet TK 1 T PO Q 6 H TAT 07/05 completed Not Available Not Available Not Available hydrocodone 10 mg-acetamin ophen 325 mg tablet TK 1 T PO Q 6 H PRN P 07/05 completed Not Available Not Available Not Available ketorolac 0.5 % eye drops INSTILL 1 DROP INTO BOTH EYES THREE TIMES DAILY FOR 2 WEEKS 06/23 completed Not Available Not Available Not Available amoxicillin 875 mg tablet Take 1 tablet every 12 hours by oral route for 7 days. active Not Available Not Available No t Available prednisolon e acetate 1 % eye drops,suspe nsion 03/02 completed Not Available Not Available Not Available meclizine 25 mg tablet 09/14 completed Not Available Not Available Not Available benzonatate 100 mg capsule TK 1 C PO Q 8 H PRN 03/02 completed Not Available Not Available Not Available cephalexin 500 mg capsule Take 1 capsule every 12 hours by oral route for 7 days. active Not Available Not Available No t Available pantoprazol e 40 mg tablet,asa yed release active Not Available Not Available Not Available oseltamivir 75 mg capsule TK 1 C PO BID FOR 5 DAYS 07/05 completed Not Available Not Available Not Available clotrimazol e-betametha sone 1 %-0.05 % topical cream APPLY TOPICALLY TO THE AFFECTED AND SURROUNDI NG AREAS TWICE DAILY IN THE MORNING AND IN THE EVENING FOR 2 WEEKS 06/23 completed Not Available Not Available Not Available fluorometho lone 0.1 % eye drops,suspe nsion 07/05 completed Not Available Not Available Not Available Anaprox DS 550 mg tablet Take 1 tablet every 12 hours by oral route as needed. 11/29 completed Not Available Not Available Not Available gabapentin 300 mg capsule Take 1 capsule every day by oral route at bedtime. active Not Available Not Available No t Available sertraline 25 mg tablet TAKE 1 TABLET BY MOUTH EVERY DAY AT BEDTIME 09/14 completed Not Available Not Available Not Available buspirone 7.5 mg tablet Take 1 tablet twice a day by oral route. active Not Available Not Available No t Available omeprazole 20 mg capsule,del ayed release TAKE 1 CAPSULE BY MOUTH EVERY DAY active Not Available Not Available No t Available ibuprofen 600 mg tablet Take 1 tablet 3 times a day by oral route as needed for 30 days. active Not Available Not Available No t Available levofloxaci n 500 mg tablet TK 1 T PO QD TAT 07/05 completed Not Available Not Available Not Available methylpredn isolone 4 mg tablets in a dose pack FOLLOW PACKAGE DIRECTION S 08/11 completed Not Available Not Available Not Available ondansetron 4 mg disintegrat ing tablet 08/19 completed Not Available Not Available Not Available fluticasone propionate 50 mcg/actuati on nasal spray,suspe nsion SHAKE LIQUID AND USE 1 SPRAY IN EACH NOSTRIL EVERY DAY 09/14 completed Not Available Not Available Not Available sertraline 50 mg tablet TAKE 1 AND 1/2 TABLETS BY MOUTH EVERY DAY active Not Available Not Available No t Available doxycycline hyclate 100 mg tablet TAKE 1 TABLET BY MOUTH TWICE DAILY 04/20 completed Not Available Not Available Not Available amoxicillin 875 mg-potassiu m clavulanate 125 mg tablet TK 1 T PO Q 12 H 07/05 completed Not Available Not Available Not Available Bactrim DS 800 mg-160 mg tablet Take 1 tablet every 12 hours by oral route for 10 days. 03/02 completed Not Available Not Available Not Available escitalopra m 10 mg tablet TAKE 1 TABLET BY MOUTH EVERY DAY 10/16 completed Not Available Not Available Not Available ketorolac 0.4 % eye drops INT 1 DROP INTO OU TID FOR 1 WEEK 07/05 completed Not Available Not Available Not Available tadalafil 20 mg tablet 1/2 to 1 tab 30 minutes prior to intercour se 09/14 completed Not Available Not Available Not Available Luisa-D 24 Hour 180 mg-240 mg tablet,exte nded release TK 1 T PO QD 07/05 completed Not Available Not Available Not Available omeprazole 09/01 completed Not Available Not Available Not Available Dexilant 60 mg capsule, delayed release TAKE 1 CAPSULE BY MOUTH DAILY 08/19 completed Not Available Not Available Not Available Dexilant 30 mg capsule, delayed release 2 po qday 08/19 completed Not Available Not Available Not Available Suprep Bowel Prep Kit 17.5 gram-3.13 gram-1.6 gram oral solution MIX AND DRINK UTD 07/23 completed Not Available Not Available Not Available Flucelvax Quad (PF) 60 mcg (15 mcg x 4)/0.5 mL IM syringe ADM 0.5ML IM UTD 04/20 completed Not Available Not Available Not Available BinaxNOW COVID-19 Ag Self Test kit TEST DIRECTED TODAY 04/20 completed Not Available Not Available Not Available Vitals Date Recorded Body height Body mass index (BMI) Body weight Provider Name and Address Organization Details Last Updated DateTime 09/14/2023 170.18 cm 33.5 kg/m2 08446.77 g ODETTE Modi AL nivio [facility] 09/14/2023 14:40:15 Date Recorded Body height Body mass index (BMI) Body weight Body temperature Heart rate Oxygen saturation Oxygen saturation in Arterial blood by Pulse oximetry Systolic blood pressure Diastolic blood pressure Provider Name and Address Organization Details Last Updated DateTime 170.18 cm 34.1 kg/m2 17325.1 4 g 98.7 [degF] 71 /min 98 % 98 % 138 mm[Hg] 90 mm[Hg] Tricia Montoya RN AL nivio [facility] 08:08:30 Date Recorded Body height Body mass index (BMI) Body weight Body temperature Heart rate Oxygen saturation Oxygen saturation in Arterial blood by Pulse oximetry Systolic blood pressure Diastolic blood pressure Provider Name and Address Organization Details Last Updated DateTime 4 170.18 cm 34.1 kg/m2 98972.1 4 g 98.4 [degF] 90 /min 98 % 98 % 140 mm[Hg] 84 mm[Hg] Di Sigala RN [facility] 4 08:34:04 Date Recorded Body height Body temperature Body mass index (BMI) Body weight Oxygen saturation Oxygen saturation in Arterial blood by Pulse oximetry Systolic blood pressure Diastolic blood pressure Provider Name and Address Organization Details Last Updated DateTime 4 170.18 cm 98.4 [degF] 34.7 kg/m2 183797. 35 g 95 % 95 % 142 mm[Hg] 82 mm[Hg] Tatiana Magdaleno MA [facility] [place] [facility] 4 17:02:10 Date Recorded Heart rate Heart rate Respiratory rate Provider Name and Address Organization Details Last Updated DateTime 09/21/2024 99 /min 99 /min 15 /min Bridger Sigala MD [address], [place], [address] 09/21/2024 17:28:52 Date Recorded Body height Body mass index (BMI) Body weight Body temperature Heart rate Oxygen saturation Oxygen saturation in Arterial blood by Pulse oximetry Systolic blood pressure Diastolic blood pressure Provider Name and Address Organization Details Last Updated DateTime 5 170.18 cm 34.6 kg/m2 397033. 91 g 98.3 [degF] 88 /min 95 % 95 % 118 mm[Hg] 72 mm[Hg] Tatiana Magdaleno MA [facility] 5 16:59:26 Date Recorded Heart rate Respiratory rate Provider N sheeba and Address Organization Details Last Updated DateTime 11/15/2024 88 /min 15 /min Bridger Sigala MD [address], [place], [address] 11/15/2024 17:22:08 Social History Question Answer Notes LastModified by Organization Details LastModified Time Tobacco Smoking Status Former Smoker Tatiana Magdaleno MA null, [facility] 09/21/2024 17:05:35 What Is Your Level Of Alcohol Consumption? Occasional MIGRATION.0301 [id number] Information not available 12/17/2022 What Is Your Level Of Caffeine Consumption? Heavy MIGRATION.0301 [id number] Information not available 12/17/2022 In The 14 Days Before Symptom Onset, Have You Had Close Contact With A Laboratory-confi rmed COVID-19 While That Case Was Ill? No Information not available 09/21/2024 In The 14 Days Before Symptom Onset, Have You Had Close Contact With A Person Who Is Under Investigation For COVID-19 While That Person Was Ill? No Information not available 09/21/2024 Are You Currently Employed? Yes Information not available 09/21/2024 What Type Of Diet Are You Following? REGULAR MIGRATION.0301 [id number] Information not available 12/17/2022 Do You Have An Electrostatic Air Filter? No Information not available 09/21/2024 Have You Been Exposed To Chemicals Or Toxins? No Not That Aware Of Information not available 09/21/2024 When Did You Quit Smoking? 16+yearssincelastci lidia Information not available 09/21/2024 Do You Have A Humidifier? No Information not available 09/21/2024 Where Do You Live? SingleLevelHouse Information not available 09/21/2024 Do You Have Moisture Problems In Your Home? No Information not available 09/21/2024 What Was The Date Of Your Most Recent Tobacco Screening? 11/15/2024 Information not available 11/15/2024 How Many Children Do You Have? 1 Information not available 09/21/2024 Have You Ever Been Counseled For Unhealthy Alcohol Use? No MIGRATION.0301 [id number] Information not available 12/17/2022 Do You Have Any Pets? Yes Information not available 09/21/2024 What Is Your Relationship Status? Information not available 09/21/2024 Do You Use Your Seat Belt Or Car Seat Routinely? Yes Information not available 09/21/2024 Do You Have Smoke And Carbon Monoxide Detectors In Your Home? Yes Information not available 09/21/2024 At What Age Did You Start Smoking Tobacco? 18 Information not available 09/21/2024 Are You Passively Exposed To Smoke? No Information not available 09/21/2024 How Much Tobacco Do You Smoke? 1 PPD Information not available 09/21/2024 Do You Feel Stressed (tense, Restless, Nervous, Or Anxious, Or Unable To Sleep At Night)? [id number] Information not available 09/21/2024 Do You Use Any Illicit Or Recreational Drugs? No MIGRATION.0301 [id number] Information not available 12/17/2022 Do You Use Sunscreen Routinely? No Information not available 09/21/2024 Has Tobacco Cessation Counseling Been Provided? No MIGRATION.0301 [id number] Information not available 12/17/2022 Have You Recently Traveled Abroad? No Information not available 09/21/2024 Do You Have Any Dietary Restrictions? No No Ice Cream MIGRATION.0301 [id number] Information not available 12/17/2022 Do You Or Have You Ever Used Any Other Forms Of Tobacco Or Nicotine? No MIGRATION.0301 [id number] Information not available 12/17/2022 Sex: Unknown Functional Status Question Answer Note LastModified by Organizat ion Details LastModified Time What is your exercise level? Heavy [id number] Information not available 12/17/2022 Mental Status None recorded. Family History Relationship Description Onset Age of this Age Resolved Age Notes LastModified by Organization Details LastModified Time Mother Kidney disease [email or web address] Not available 2023 17:04:07 Mother Peripheral vascular disease Not available 2023 17:31:25 Father Hypertensive disorder [email or web address] Not available 2023 17:04:26 Father Chronic obstructive pulmonary disease Not available 2023 17:32:19 Maternal Grandmother Sepsis Not available 2023 17:29:55 Paternal Aunt Obesity Not avail able 09/21/2024 17:30:14 Paternal Aunt Heart valve disorder Not available 2023 17:31:00 Paternal Uncle Obesity Not available 09/21/2024 17:30:20 Paternal Uncle Neoplasm of brain Not available 2023 17:30:36 Brother Deep venous thrombosis Not available 09/21 17:32:32 Brother Pulmonary embolism Not available 2023 17:32:41 Medical History Condition Response SLEEP APNEA N MRSA N ALLERGIES/HAYFEVER N LUNG DISEASE/DISORDER N INSOMNIA N HISTORY OF DRUG ABUSE N RADIATION / CHEMOTHERAPY N COPD N HIGH CHOLESTEROL / HYPERLIPIDEMIA N HYPERTHYROIDISM N BLOOD DISEASES N EAR OR HEARING PROBLEMS N HYPOTHYROIDISM N SHINGLES N DEPRESSION (INCLUDING POST ) N HAVE YOU BEEN HOSPITALIZED OR SEEN IN [facility] ER IN THE PAST YEAR ? N STROKE/TIA N ULCERS N OBESITY N HISTORY WITH COMPLICATIONS WITH ANESTHES [place] ? N ANEURYSM N USE OF BLOOD THINNERS N NO SIGNIFICANT PAST MEDICAL HISTORY N DIABETES, TYPE N PARATHYROID DISEASE N ENT N SEASONAL ALLERGIES N HEARTBURN / REFLUX N HEPATITIS / LIVER DISEASE N SLEEP DISORDER N SEIZURES/EPILEPSY N HEADACHES/MIGRAINES N CHF N PACEMAKER N DIZZINESS N HEART DISEASE/HEART PROBLEMS N AIDS/HIV N FRACTURES N HYPERTENSION N CANCER: SPECIFY N TOURETTE'S N BLOOD TRANSFUSION N ANESTHESIA COMPLICATIONS N ANEMIA/BLOOD DISORDER N CHRONIC EAR INFECTIONS N AUTOIMMUNE DISEASE N TUBERCULOSIS N Immunizations Vaccine Type Date Status Note Provider Nam e and Address Organization Details Recorded Time Influenza, split virus, quadrivalent, PF 07/05/2018 completed Not Available [facility] 3 04:58:24 Influenza, split virus, quadrivalent, PF 07/23/2020 completed Not Available [facility] 3 04:58:24 Past Encounters Encounter ID Performer Location Encounter Start Date Encounter Closed Date Diagnosis/Indication Diagnosis SNOMED-CT Code Diagnosis ICD10 Code Diagnosis Note [id number] [facility] [place] [address] [facility] [address] [place] [address] 07/31/2021 00:00:00 07/31/2021 18:21:30 [id number] [facility] [place] [address] [facility] [address] [place] [address] 08/14/2021 00:00:00 08/14/2021 11:24:57 [id number] [facility] [place] [address] [facility] [address] [place] [address] 09/30/2021 00:00:00 10/17/2021 09:53:31 [id number] [facility] [place] [address] [facility] [address] [place] [address] 10/21/2021 00:00:00 10/21/2021 09:29:35 [id number] [facility] [place] [address] [facility] [address] [place] [address] 04/18/2022 00:00:00 04/18/2022 10:38:28 [id number] [facility] [place] [address] [facility] [address] [place] [address] 06/02/2022 00:00:00 06/02/2022 18:02:05 [id number] [facility] [place] [address] [facility] [address] [place] [address] 08/12/2022 00:00:00 08/12/2022 11:00:00 [id number] [facility] [place] [address] [place] [address] 08/19/2022 00:00:00 08/19/2022 16:42:26 [id number] [facility] [place] [address] [facility] [address] [place] [address] 10/21/2022 00:00:00 10/21/2022 18:12:28 [id number] [facility] [place] [address] [place] [address] [address] [place], [place] [address] 11/04/2022 00:00:00 11/04/2022 19:27:01 [id number] SUZANNE Irwin [facility] [place] [address] [facility] [address] [place], [place] [address] 01/23/2023 15:00:54 01/23/2023 15:40:49 Intertrigo 20895443 L30.4 New problemSus pect viral etiology, but may also have fungal component. Since pt did get some improvemen t with otc steroid cream, will give rx for clobetasol to cover for both.RTO next week if not improved. Aphthous u lcer of mouth 095424588 K12.0 New problemAdv ised to try otc Abreva to moisturize and help heal. Advised Carmex may cause burning/di scomfort. Will start on valacyclov ir 1g-2 tabs q 12hrs for 1 day. Discussed outbreaks may occur during times of stress/anx iety, illness. Advised to call or be seen for suppressiv e therapy if more than 3-5 outbreaks/ year. [id number] JOE Young [facility] [address] [facility] [address] [place] [address] 04/20/2023 08:08:07 04/20/2023 10:13:39 Right inguinal hernia 845882021 K40.90 Will get US to evaluate further. Had bulge previously but states he was able to push it back in and it has not come back since last week. He has previously been told he has a hernia, does not remember which side. Long-term drug therapy 270959760 Z79.899 Dysuria 42074141 R30.0 Mainly just hesitancy, states sometimes he thinks he might feel burning but not sure if that is just cause he is straining to urinate. Will check UA to r/o any pathology. Need to increase water intake. [id number] KELBY Mahoney [facility] Primary Care [facility] [address] [facility] [address] [place] [address] 06/24/2023 07:59:24 06/24/2023 08:24:18 Shoulder pain 54900748 M25.519 Rated 0/10 at rest, pain increases with flexion/ex tensionHas been an issue for approx 6-7 months (no apparent injury)wor sened 2 weeks ago while working on a car-perfor caro pushing motionIs now affecting ADLsuses ibuprofen for pain-600mg prnreferra l to PT/ortho pending xray [id number] Bill Ha MD [facility] Ortho [place] [address] [place] [address] 09/14/2023 14:18:43 09/16/2023 08:58:25 Pain of bilateral hands [id number] M79.641 M79.653 [id number] KELBY Mahoney [facility] Primary Care [facility] [address] [facility] [address] [place] [address] 08/11/2024 08:01:26 08/11/2024 08:32:04 Anxiety 12800699 F41.9 chronic stable with use of sertraline and clonazepam only uses clonazepam maybe once or twice/angel hwould like for us to refill the sertraline when he needs a refill Gastroesop hageal reflux disease without esophagitis 788507520 K21.9 Long-term drug therapy 868478501 Z79.891 Pt denies any lending, selling, or borrowing of medication s. Denies any cp, sob, palpitatio ns, or unusual weight loss.Revie wed controlled substance agreement requiremen ts. Refill given.[place] PDMP checked today.HAS NOT TAKEN CLONZEPAM IN 3 WEEKS, [id number] KELBY Owens [facility] Primary Care [facility] [address] [facility] [address] [place] [address] 09/01/2024 08:25:45 09/01/2024 09:09:32 Hiatal hernia 56384566 K44.9 Adult heal th examination 163942078 Z00.00 Discussed medication compliance and routine follow up.Discuss ed healthy diet and routine exercise.Stephani santiagowed vaccine records and made recommenda tions as needed.Enc ouraged annual eye and dental exams, as well as twice yearly dental cleanings. Will check screening labs as listed below. Gastroesop hageal reflux disease 248888932 K21.9 Not well controlled on 20mg Omeprazole .Will increase to 40mg daily and follow up as needed. Obstructiv e sleep apnea syndrome 78752204 G47.33 Sleeping 5-6 hours per night.Had sleep study in 2020, does not wear CPAP. Steatosis of liver 1007 K76.0 Anxiety 45759727 F41.9 CHARU-7 (06/08).Wel l controlled on current medication s.Takes Clonazepam very sparingly. Sleep apnea 72423226 G47 .30 Body mass index 30+ - obesity 200784655 Z68.34 Discussed healthy diet and routine exercise. [id number] Bridger Sigala MD [facility] [address] 09/21/2024 16:51:14 09/22/2024 16:37:06 Obstructive sleep apnea syndrome 41946567 G47.33 G47.30 G47.36 G47.61 [id number] Bridger Sigala MD [facility] [address] 11/15/2024 16:47:39 11/16/2024 09:02:33 Obstructive sleep apnea syndrome 96062190 G47.33 G47.37 Health Concerns Section Related Observation LastModified by Organization Detai ls LastModified Time None Recorded Concern Status LastModified by Organization Details LastModified Time None Recorded Advance Directives Directive None Recorded Payers Encounter Date Sequence Insurance Name Policy Number Policy Berger Covered Member ID Berger Member ID Guarantor Name 09/14/2023 1 [employer] [id number] Sergio Guzman [id number] 1 Sergio Guzman 08/11/2024 1 [employer] [id number] Sergio Guzman [id number] 1 Sergio Guzman 09/01/2024 1 [employer] [id number] Sergio Guzman [id number] 1 Sergio Guzman 09/21/2024 1 [employer] [id number] Sergio Guzman [id number] 1 Sergio Guzman 11/15/2024 1 [employer] [id number] Sergio Guzman [id number] 1 Sergio Guzman Notes Date Note Type Note Provider Name and Address Organization Details Recorded Time 09/14/2023 text/html Patient is a 43-year-old gentleman referred by Dr. Guillen for evaluation of his bilateral hand symptoms. He has had numbness and tingling for both hands for at least 3 years may be. His symptoms have come and gone. He has had a month with severe symptoms and then a month with no symptoms. Last year he was having rather severe symptoms and he had nerve conduction velocity EMG on 08/[address] [place] [address] Neurology which demonstrated normal EMG portion of the test and nerve conduction velocity evidence of bilateral moderate carpal tunnel syndrome. He then had improvement again the symptoms and did not pursue further treatment. Over the last few years when his symptoms would flare he would use the wrist splints at night and they would help but now even with the braces he has been awakening 3-4 times per night. The the right has always been the worst side but the left seems to be catching up lately. He recalled leaning on his elbows recently and had immediate numbness in his right hand and as he sits if he holds his hands out extended straightens his fingers he feels numbness in both hands. His numbness and tingling is very well localized both has of the thumb index and long fingers and the radial half of the ring finger bilaterally. He notes that he has not noticed numbness or tingling in the 5th fingers of either. One week ago he had an episode where his right thumb became completely numb for a day. Patient has chronic neck pain and he notes that his father has had a cervical decompression and fusion procedure. 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 He does report a very slight level of constant tingling in the right hand which varies. 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 He did have a distal radius fracture at the left wrist 30 years ago playing football falling on the outstretched hand. Bill Ha MD [address] [address], [place], [address], [employer] 09/15/2023 19:40:59 08/11/2024 text/html pt is here for med f/u KELBY Youssef [address] [facility], [facility] [address], [place], [address], [employer] 08/11/2024 08:45:49 09/01/2024 text/html Patient is a 44 year old male that presents to the office for annual wellness. Patient is doing well on current medications. Denies chest pain and shortness of breath. Patient reports he was diagnosed with sleep apnea in 2020, was told he needed a CPAP but refuses to use one. Patient states I didn't want to be that person . He now wants a CPAP because his has been telling him the benefits of using one. Patient reports getting 4-5 hours of sleep per night, never feeling rested. Patient reports history of hiatal hernia that was unintentionally discovered that he would like to have checked. Patient denies any symptoms associated with hernia. labs-due in OctoberColonoscopy-age 59Hrj-avjonwamSapve-EO DTdap-UTD within this year KELBY Owens [address] [facility], [facility] [address], [place], [address], [facility] 09/06/2024 22:34:55 09/21/2024 text/html Primary care/Ref erring provider: KELBY Owens During the [facility] home sleep study on 12/31/20, AHI = 18. During the [facility] home sleep study on 09/13/24, AHI = 30, supine AHI = 33. At home, the patient sleeps from 12 am to 6 am and wakes up without an alarm. Snoring: heavy, since . Snorting: yes Choking: no Coughing: no Gasping: no Gagging: yes Sighing: yes Witnessed apnea: yes Twitching or jerking of leg(s), arm(s), body, head: yes Teeth grinding: yes Teeth clenching: yes Sleeptalking: no Sleepwalking: no Sleep crying: yes Bedwetting: no Tongue/lip/gum/cheek biting: yes Sleeping with open mouth: yes Sleep paralysis: no Hypnagogic hallucinations: no Hypnopompic hallucinations: no Vivid dreams: no Difficulty with sleep onset: no Difficulty with sleep maintenance: yes Sleep interruptions: nocturia x 2 Patient wakes up with: fatigue, xerostomia, sore throat, hoarse voice, headaches Daytime cataplexy: no Morning hypersomnolence: no Afternoon hypersomnolence: yes Caffeine sources in diet: soda 36 oz per day, chocolate 1.5 candy per day Associated medical and psychiatric conditions: Congestive heart failure: no Coronary artery disease: no Myocardial infarction: no Hypertension: no Stroke: no Bronchial asthma: no Chronic obstructive pulmonary disease: no Depression: yes Bipolar disorder: no Anxiety: yes Panic disorder: yes Posttraumatic stress disorder: no Attention deficit and hyperactivity disorder: no Obsessive Compulsive disorder: no Schizophrenia: no Schizoaffective disorder: no Personality disorder: no Chronic analgesic use: no Chronic sedative/hypnotic use: no EPWORTH SLEEPINESS SCALE (ESS) CHANCE OF DOZING SCORE 0 = would never doze 1 = slight chance of dozing 2 = moderate chance of dozing 3 = high chance of dozing SITUATION AND CHANCE OF DOZING Sitting and reading - 2 Watching television - 2 Sitting inactive in a public place (e.g. a theater or meeting) - 1 As a passenger in a car for an hour without a break - 3 Lying down to rest in the afternoon when circumstances permit - 3 Sitting and talking to someone - 0 Sitting quietly after lunch without alcohol - 0 In a car, while stopped for a few minutes in the traffic - 0 TOTAL SCORE 11 Subjectively, patient has a moderate chance of dozing. Bridger Sigala MD [address] [place] [address], [address], [place] [facility] 09/21/2024 17:43:28 11/15/2024 text/html Primary care/Ref erring provider: SUZANNE Owens-C During the [facility] home sleep study on 12/31/20, AHI = 18. During the [facility] home sleep study on 09/13/24, AHI = 30, supine AHI = 33. During the [facility] titration sleep study on 11/04/24, sleep onset = 28.5 minutes, REM onset = 327 minutes, PLMI = 0.0. Treatment-emergent central apneas persisted. The patient uses a ResMed AirSense 11 autoset unit with heated humidification. The patient does not need the ramp to start low and go up slowly on the pressure. There is some xerostomia in a.m. There is no hose/mask condensation with water. The patient wears a [employer]Med medium AirFit F30 full face mask without chin strap. There is no claustrophobia, no nostril/nose bridge irritation, no facial rash, no facial numbness, no nosebleeding. The patient feels more refreshed upon waking and daytime alertness is slightly improved. Energy levels are sustained until noon.At home, the patient sleeps from 12 am to 6 am and wakes up without an alarm. Snoring: heavy, since .Snorting: yesChoking: noCoughing: noGasping: noGagging: yesSighing: yesWitnessed apnea: yesTwitching or jerking of leg(s), arm(s), body, head: yesTeeth grinding: yesTeeth clenching: yesSleeptalking: noSleepwalking: noSleep crying: yesBedwetting: noTongue/lip/gum/cheek biting: yesSleeping with open mouth: yesSleep paralysis: noHypnagogic hallucinations: noHypnopompic hallucinations: noVivid dreams: noDifficulty with sleep onset: noDifficulty with sleep maintenance: yesSleep interruptions: nocturia x 2Patient wakes up with: fatigue, xerostomia, sore throat, hoarse voice, headachesDaytime cataplexy: noMorning hypersomnolence: noAfternoon hypersomnolence: yesCaffeine sources in diet: soda 36 oz per day, chocolate 1.5 candy per day Associated medical and psychiatric conditions:Congestive heart failure: noCoronary artery disease: noMyocardial infarction: noHypertension: noStroke: noBronchial asthma: noChronic obstructive pulmonary disease: noDepression: yesBipolar disorder: noAnxiety: yesPanic disorder: yesPosttraumatic stress disorder: noAttention deficit and hyperactivity disorder: noObsessive Compulsive disorder: noSchizophrenia: noSchizoaffective disorder: noPersonality disorder: noChronic analgesic use: noChronic sedative/hypnotic use: no EPWORTH SLEEPINESS SCALE (ESS) CHANCE OF DOZING SCORE0 = would never doze1 = slight chance of dozing2 = moderate chance of dozing3 = high chance of dozing SITUATION AND CHANCE OF DOZINGSitting and reading - 2Watching television - 2Sitting inactive in a public place (e.g. a theater or meeting) - 2As a passenger in a car for an hour without a break - 3Lying down to rest in the afternoon when circumstances permit - 3Sitting and talking to someone - 1Sitting quietly after lunch without alcohol - 1In a car, while stopped for a few minutes in the traffic - 0TOTAL SCORE 14Subjectively, patient has a moderate chance of dozing. Bridger Sigala MD [address] [place] [address], [place], [address], [place] [facility] 11/15/2024 17:22:20
[2025-01-10 08:19] VITALS: BP 148/94; PULSE 78; RESP 18; TEMP 36.2; O2SAT 96; BMI 33.1
[2025-01-10] MEDS: LACTATED RINGERS 1,000 ML 150 ML IV CONT (08:34)
--- NOTE | 2025-01-10 08:50 | P.PNAN_ITS ---
Anes - Initial Pre Proc Eval Procedure: Operation Date: 01/10/25 09:15 Proposed Procedures p Esophagogastroduodenoscopy - Juan M Sarmiento MD Date/Time: 01/10/25 08:50 Surgeon: Juan M Sarmiento MD Pre Op Diagnosis: Gastro-esophageal reflux disease without esophagit Patient Data Age: 44 Gender: M Height: 1.73 m Weight: 98.9 kg Last Vital Signs Temp 36.2 C L 01/10/25 08:19 Pulse 78 01/10/25 08:19 Resp 18 01/10/25 08:19 BP 148/94 H 01/10/25 08:19 Pulse Ox 96 01/10/25 08:19 O2 Del Method Room Air 01/10/25 08:19 Allergies Allergy/AdvReac Type Severity Reaction Status Date / Time No Known Allergies Allergy Mild Verified 01/10/25 08:18 Home Medications ?Medication ?Instructions ?Recorded ?Confirmed ?Type clonazepam 1 mg tablet 1 mg PO DAILY PRN anxiety 11/29/20 01/10/25 History ibuprofen 600 mg tablet (IBU) 600 mg PO Q6H PRN fever or pain #7 11/29/20 12/30/24 Rx tabs pantoprazole 40 mg tablet,delayed 40 mg PO BID 1 month #60 tabs 11/28/24 01/10/25 Rx release sertraline 25 mg tablet 75 mg PO DAILY 11/28/24 01/10/25 History Patient hx anesthesia problems: none Family hx anesthesia problems: none Results Review: All pre-operative results and documents have been reviewed as part of the pre- operative evaluation. [facility] Past Medical History Medical History (Updated 01/10/25 @ 08:51 by Wilfredo Borrero MD) Anxiety CYNTHIA on CPAP Obesity GERD (gastroesophageal reflux disease) Family History Family History Other Hypertension Social History Social History Smoking packs per day: 1 Smoking cigarettes per day: 20.0 Years smoked: 10 Smoking pack-years: 10.00 Smoking status: Former smoker Tobacco type: cigarettes Alcohol intake: never Substance use: never Substance use type: does not use Do You Feel Safe in your Home?: Yes Lack of Transportation: No Lack of Food: Never True Current Housing: I Have Housing Concerned About Future Housing: No Difficulty Paying Gas/Electric Bills: No Difficulty Paying for Meds: No Currently Unemployed: No Education: High School Diploma/GED Difficulty w/ Childcare or Family Care: No Living arrangements: with family Spiritual care concerns: No Anes - Eval Final PreProcedure Day of Procedure 01/10/25 08:50 Patient weight: obese Heart: regular rate and rhythm Lungs: clear to auscultation Airway: Mallampati scale class II and special considerations large neck Neurological: alert and oriented Last oral intake: >/= 8 hours Emergent: no Anesthetic plan: proceed Anesthesia type and monitoring: general GIVS and standard monitoring Results Review: All pre-operative results and documents have been reviewed as part of the pre- operative evaluation. Informed Consent: The patient's anesthetic plan and its attendant risks and benefits were discussed with the patient/family/POA. Questions were solicited and answers provided to the satisfaction of the patient/family/POA.
--- NOTE | 2025-01-10 09:11 | PM.HPGS ---
History of Present Illness History of Present Illness Consent: Risks, benefits, and alternatives have been discussed and questions answered. Patient agrees to proceed with procedure. Chief complaint: Gastro-esophageal reflux disease without esophagit Narrative: Sergio Guzman is a 44 year old male with gerd on ppi daily, had egd but years ago Review of Systems Review of Systems: All systems reviewed & are unremarkable except as noted in HPI and below PMFSH Past Medical History Medical History (Updated 01/10/25 @ 08:51 by Wilfredo Borrero MD) Anxiety CYNTHIA on CPAP Obesity GERD (gastroesophageal reflux disease) Family History Family History Other Hypertension Social History Social History Smoking packs per day: 1 Smoking cigarettes per day: 20.0 Years smoked: 10 Smoking pack-years: 10.00 Smoking status: Former smoker Tobacco type: cigarettes Alcohol intake: never Substance use: never Substance use type: does not use Do You Feel Safe in your Home?: Yes Lack of Transportation: No Lack of Food: Never True Current Housing: I Have Housing Concerned About Future Housing: No Difficulty Paying Gas/Electric Bills: No Difficulty Paying for Meds: No Currently Unemployed: No Education: High School Diploma/GED Difficulty w/ Childcare or Family Care: No Living arrangements: with family Spiritual care concerns: No Meds Home Medications and Allergies Home Medications ?Medication ?Instructions ?Recorded ?Confirmed ?Type clonazepam 1 mg tablet 1 mg PO DAILY PRN anxiety 11/29/20 01/10/25 History ibuprofen 600 mg tablet (IBU) 600 mg PO Q6H PRN fever or pain #7 11/29/20 12/30/24 Rx tabs pantoprazole 40 mg tablet,delayed 40 mg PO BID 1 month #60 tabs 11/28/24 01/10/25 Rx release sertraline 25 mg tablet 75 mg PO DAILY 11/28/24 01/10/25 History Allergies Allergy/AdvReac Type Severity Reaction Status Date / Time No Known Allergies Allergy Mild Verified 01/10/25 08:18 Vital Signs Vital Signs - 24 hr 01/10/25 08:19 Temperature 97.1 F L Pulse Rate 78 Respiratory Rate 18 Blood Pressure 148/94 H Pulse Oximetry 96 Oxygen Delivery Room Air Exam Const: General: comfortable and no acute distress HENMT: Face/Nose/Sinus: Normal nares present Eyes: General: appearance normal, both eyes and all related structures Neck: Neck: no JVD Resp: Auscultation: clear to auscultation bilaterally Cardio: Rate: regular rate Rhythm: regular rhythm GI: Inspection: non-distended GI Palp: Yes Soft to palpation Skin: General skin exam: normal color Neuro: General: gait normal Speech: normal speech Extrem: General: normal to inspection Psych: Mental Status: mental status grossly normal Assessment and Plan Assessment and plan (1) GERD (gastroesophageal reflux disease): Qualifiers: Esophagitis presence: esophagitis presence not specified Qualified Code(s): K21.9 - Gastro-esophageal reflux disease without esophagitis Code(s): K21.9 - Gastro-esophageal reflux disease without esophagitis Status: Acute Assessment and Plan: egd with bx
[2025-01-10 09:20] VITALS: BP 123/77; PULSE 78; RESP 13; O2SAT 96
[2025-01-10 09:30] VITALS: BP 107/52; PULSE 79; RESP 13; O2SAT 96
[2025-01-10 09:40] VITALS: BP 111/68; PULSE 74; RESP 30; O2SAT 97
== END 2025-01-10 09:45 | disposition home or self-care (01) ==
PROVIDERS: PCP Nurse Practitioner Family; Referring Provider Surgery; Visit Provider Internal Medicine Gastroenterology
PROC: 0DJ08ZZ Inspection of Upper Intestinal Tract, Via Natural or Artificial Opening Endoscopic (ICD-10-PCS; CPT 43239; principal; 2025-01-10 09:15)
DX: K21.00 Gastro-esophageal reflux disease with esophagitis, without bleeding (principal); K44.9 Diaphragmatic hernia without obstruction or gangrene; K31.89 Other diseases of stomach and duodenum; F41.9 Anxiety disorder, unspecified; G47.33 Obstructive sleep apnea (adult) (pediatric); E66.9 Obesity, unspecified; Z68.33 Body mass index [BMI] 33.0-33.9, adult; Z79.1 Long term (current) use of non-steroidal anti-inflammatories (NSAID); Z99.89 Dependence on other enabling machines and devices; Z87.891 Personal history of nicotine dependence
CPT/HCPCS: 43239; 88305; J2003; J2704; J7120